=== PATIENT | male | born 1955 | race Caucasian/White ===

== ENCOUNTER 2018-07-28 18:42 | Inpatient (IN) | payer OTHER ==
[~2018-07-28] VITALS: Ht 172.7 cm; Wt 82.2 kg
[2018-07-28 20:05] VITALS: BP 136/81
[2018-07-28 23:04] LABS: BILIRUBIN,URINE NEGATIVE (NEG); CLARITY,URINE CLEAR; COLOR,URINE YELLOW; NITRITE,URINE NEGATIVE (NEG); PH,URINE 7.5; PROTEIN,URINE NEGATIVE (NEG-TRACE)
[2018-07-28 23:15] LABS: BACTERIA,URINE 0 /HPF (0-FEW); HYALINE CASTS, URINE FEW /HPF; RBC,URINE OCC /HPF (0-2); SQUAMOUS EPITHELIAL CELL,UR OCC /LPF; WBC,URINE OCC /HPF (0-4)
[2018-07-28 23:47] VITALS: BP 106/69
[2018-07-29] MEDS ORDERED: LISI2.5T PO (01:26)
[2018-07-29] MEDS ORDERED: METO25TA4 PO (01:26)
[2018-07-29] MEDS ORDERED: WARF4TAB68 PO (01:26)
[2018-07-29] MEDS ORDERED: TRIA1TAB3 PO (01:26)
[2018-07-29 03:06] VITALS: BP 95/63
--- NOTE | 2018-07-29 07:07 | EKG ---
[facility] [address] [place] [address] Test Date: 2018-07-29 Test Time: 07:02:02 Pat Name: JUAN PAGAN Department: Room: 207 Gender: M Merchandising Specialist: : [id number] Requested By: GRACIE KLEIN Order Number: [id number] Reading MD: Kayden Valdovinos MD Measurements Intervals [place] Rate: 73 P: 0 PA: 180 QRS: 67 QRSD: 80 T: 14 QT: 366 QTc: 407 Interpretive Statements SINUS RHYTHM Electronically Signed On 08-02-2018 11:11:31 [address] REPAIRER by Kayden Valdovinos MD
[2018-07-29 07:15] VITALS: BP 126/79
[2018-07-29] MEDS ORDERED: LISINOPRIL 5 MG TABLET. PO SCH (09:00)
[2018-07-29] MEDS ORDERED: METOPROLOL SUCC 24HR ER 25 MG TAB.ER.24H. PO SCH (09:00)
[2018-07-29] MEDS ORDERED: TRIAMTERENE/HCTZ 37.5/25MG TABLET. PO SCH (09:00)
--- NOTE | 2018-07-29 09:25 | CARD ---
MR#: [id number] Date of Study: 07/29/2018 Ordering Physician: MICH SANDY, Referring Physician: GRACIE KLEIN, Tech: Britni Montes PA APPROVED REPORT EXAM: Two-dimensional and M-mode echocardiogram with Doppler and color Doppler. Other Information Quality : GoodHR: 68bpm Rhythm : NSRTechnically limited study due to body habitus. INDICATION Chest Pain Surgery/Intervention Status/Post Aortic Valve Replacement: Mechanical 2D DIMENSIONS RVDd2.9 (2.9-3.5cm)IVSd1.2 (0.7-1.1cm) Aortic Root(2D)2.6 (2.0-3.7cm)LVDd4.0 (3.9-5.9cm) LVOT Diameter1.9 (1.8-2.4cm)PWd1.2 (0.7-1.1cm) LVDs2.6 (2.5-4.0cm)FS (%) 36.2 % SV46.7 mlLVEF(%)66.4 (>50%) Aortic Valve AoV Peak Sudheer.225.7cm/sAoV VTI43.5cm AO Peak GR.20.4mmHgLVOT Peak Sudheer.91.9cm/s AO Mean GR.10mmHgAVA (VMAX)1.11cm2 THU (VTI)1.20cm2 Mitral Valve MV E Ccuhzvjd45.3cm/sMV E Peak Gr.2mmHg MV DECEL [id number] A Yqcgbyin67.7cm/s MV E Mean Gr.1mmHgE/A Ratio1.1 MV A [id number] Pulmonary Valve PV Peak Kvmajbdc051.1cm/s Tricuspid Valve TR P. Jfcknnnd023sv/sRAP MKJGWYSV9etIr TR Peak Gr.88kxZqGAQK40rlSk Pulmonary Vein S1 Htjljwvt47.5cm/sD2 Enhukchs19.9cm/s PVa ktxiyryn13ckks LEFT VENTRICLE The left ventricle is normal size. There is mild concentric left ventricular hypertrophy. The left ve ntricular systolic function is normal and the ejection fraction is within normal range. The Ejection Fraction is 60-65%. There is normal LV segmental wall motion. Transmitral Doppler flow pattern is Gra de I-abnormal relaxation pattern. RIGHT VENTRICLE The right ventricle is normal size. There is normal right ventricular wall thickness. The right ventr icular systolic function is normal. ATRIA The left atrium size is normal. The right atrium size is normal. The interatrial septum is intact wit h no evidence for an atrial septal defect or patent foramen ovale as noted on 2-D or Doppler imaging. AORTIC VALVE Doppler and Color Flow revealed no significant aortic regurgitation. There is no significant aortic v alvular stenosis. The prosthetic aortic valve appears well seated. Suspect tilting bileaflet vacuum cleaner mechanic al valve. MITRAL VALVE The mitral valve is normal in structure and function. There is no evidence of mitral valve prolapse. There is no mitral valve stenosis. Doppler and Color Flow revealed trace mitral regurgitation. TRICUSPID VALVE The tricuspid valve is normal in structure and function. Doppler and Color Flow revealed trace tricus pid regurgitation. The PA pressure was estimated at 24 mmHg. There is no tricuspid valve prolapse or vegetation. There is no tricuspid valve stenosis. PULMONIC VALVE The pulmonary valve is normal in structure and function. Doppler and Color Flow revealed trace pulmon ic valvular regurgitation. There is no pulmonic valvular stenosis. GREAT VESSELS The aortic root is normal in size. The ascending aorta is normal in size. IVC is not well visualized. PERICARDIAL EFFUSION There is no evidence of significant pericardial effusion. Critical Notification Critical Value: No <Conclusion> The left ventricular systolic function is normal and the ejection fraction is within normal range. Th e Ejection Fraction is 60-65%. There is normal LV segmental wall motion. The prosthetic aortic valve appears well seated. Suspect tilting bileaflet mechanical valve. There is no significant aortic valvular stenosis. Signed by : Kayden Valdovinos, Electronically Approved : 07/29/2018 09:25:12
[2018-07-29 09:37] LABS: BASO # 0.1 x10^3/uL (0.0-0.2); BASO % 1 % (0-3); EOS % 1 % (0-3); HEMATOCRIT 44.8 % (39.0-53.0); HEMOGLOBIN 15.4 g/dL (13.0-17.5); LYMPH # 1.6 x10^3/uL (1.0-4.8); LYMPH % 25 % (24-48); MEAN CORPUSCULAR HEMOGLOBIN 32 pg (25-35); MEAN CORPUSCULAR HGB CONC 34 g/dL (31-37); MEAN CORPUSCULAR VOLUME 94 fL (79-100); MONO # 0.6 x10^3/uL (0.0-1.1); MONO % 9 % (0-9); NEUT # 4.3 x10^3uL (1.8-7.7); NEUT % 65 % (31-73); PLATELET COUNT 227 x10^3/uL (140-400); RED BLOOD COUNT 4.78 x10^6/uL (4.30-5.70); WHITE BLOOD COUNT 6.6 x10^3/uL (4.0-11.0)
[2018-07-29] MEDS ORDERED: ONDANSETRON PF 4 MG/2 ML VIAL. IV PRN (09:45)
[2018-07-29] MEDS ORDERED: ACETAMINOPHEN 325 MG TABLET. PO PRN (09:45)
[2018-07-29] MEDS ORDERED: traMADol 50 MG TABLET PO PRN (09:45)
[2018-07-29] MEDS ORDERED: MORPHINE SULFATE 2 MG/ML VIAL. IV PRN (09:45)
[2018-07-29] MEDS ORDERED: DOCUSATE SODIUM 100 MG CAPSULE. PO PRN (09:45)
--- NOTE | 2018-07-29 09:45 | PDOC2 ---
CARDIAC CONSULT DATE OF CONSULT Date of Consult DATE: 07/29/18 TIME: 09:00 REASON FOR CONSULT Reason for Consult: Chest pain heart history REFERRING PHYSICIAN Referring Physician: Fullbright SOURCE Source: Chart review, Patient HISTORY OF PRESENT ILLNESS HISTORY OF PRESENT ILLNESS This is a pleasant 62 yo male admitted for complains of abd pain and chest pain. He was initially at [place] and was transferred to [facility] for further treatment and evaluation. He is very active walking about 35 minutes daily without difficulty and also doing weights at times without difficulty. 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 He worked the other night and woke up at 2PM and was having abdominal cramping/pain that eventually went to his lower sternal border describing it as tightness but nonradiating after that. There was no associated heart burn, indigestion, or nausea. No associated SOA and more importantly denies any palpitations nor DALY. He just saw his [facility] pantograph transferrer Dr. Troy 2 weeks ago and was told that he was doing good. His last stress test was 4 yrs ago approximately. He has had CABGx1 and mechanical AVR due to bicuspid valve and is on care home warfarin therapy. He has been off ASA and does not take statin but takes BP med. He does have hx of GERD in the past but has not had any symptoms. Denies any past bleeding issues, VTE, PUD and no recent falls or injury. No recent fever or chills, antibiotic treatments nor diarrhea. PAST MEDICAL HISTORY Cardiovascular: HTN, Hyperlipidemia, Other (thoracic aortic repair unknown region. ) Pulmonary: No pertinent hx CENTRAL NERVOUS SYSTEM: Other (No pertinent history) GI: GERD Heme/Onc: No pertinent hx Hepatobiliary: No pertinent hx Psych: No pertinent hx Musculoskeletal: Osteoarthritis Rheumatologic: No pertinent hx Infectious disease: No pertinent hx ENT: No pertinent hx Renal/: No pertinent hx Endocrine: No pertinent hx Dermatology: No pertinent hx PAST SURGICAL HISTORY Past Surgical History: CABG, Other (right hand surgical repair) FAMILY HISTORY Family History: Coronary Artery Disease (mother) SOCIAL HISTORY Smoke: Quit (very remotely) ALCOHOL: occassional Drugs: None Lives: with Family CURRENT MEDICATIONS CURRENT MEDICATIONS Current Medications Medications (Trade) Dose Ordered Sig/Janessa Route PRN Reason Start Time Stop Time Status Last Admin Dose Admin Warfarin Sodium (Coumadin Per Physician) 1 each PRN DAILY PRN MC SEE COMMENTS 07/29/18 01:00 07/29/18 02:19 ALLERGIES ALLERGIES: Coded Allergies: No Known Allergies (Verified Allergy, Unknown, 07/29/18) ROS Review of System 14 point ROS evaluated with pertinent positives noted per HPI PHYSICAL EXAM General: Alert, Oriented X3, Cooperative, No acute distress HEENT: Atraumatic, Mucous membr. moist/pink Lungs: Clear to auscultation, Normal air movement Heart: Regular rate (SR no significant ectopies), Other (3/6 systolic murmur to KEVIN and LLS border) Abdomen: Soft, No tenderness, Other (no pulsatile mass) Extremities: No cyanosis, No edema Skin: No breakdown, No significant lesion Neuro: Normal speech, Sensation intact Psych/Mental Status: Mental status NL, Mood NL MUSCULOSKELETAL: Osteoarthritic changes both hands VITALS VITALS Vital Signs Date Time Temp Pulse Resp B/P (MAP) Pulse Ox O2 Delivery O2 Flow Rate FiO2 07/29/18 07:15 97.3 78 18 126/79 (95) 98 Room Air 97.3 LABS Lab: Laboratory Tests Test 07/28/18 21:30 07/28/18 21:55 Urine Collection Type Unknown Urine Color Yellow Urine Clarity Clear Urine pH 7.5 Urine Specific [place] 1.020 Urine Protein Negative mg/dL (NEG-TRACE) Urine Glucose (UA) Negative mg/dL (NEG) Urine Ketones (Stick) Negative mg/dL (NEG) Urine Blood Negative (NEG) Urine Nitrite Negative (NEG) Urine Bilirubin Negative (NEG) Urine Urobilinogen Dipstick 1.0 mg/dL (0.2 mg/dL) Urine Leukocyte Esterase Negative (NEG) Urine RBC Occ /HPF (0-2) Urine WBC Occ /HPF (0-4) Urine Squamous Epithelial Cells Occ /LPF Urine Bacteria 0 /HPF (0-FEW) Urine Hyaline Casts Few /HPF Urine Mucus Slight /LPF Troponin I Quantitative < 0.017 ng/mL (0.000-0.055) ASSESSMENT/PLAN ASSESSMENT/PLAN 1. Atypical CP: possible GI, doubt ACS. 2. Abdominal pain: described it as cramps. no pulsatile mass. 3. Hx of CAD/bicuspid valve/thoracic aortic aneurysm: S/P CABG x1 with mechanical [facility]u AVR and aneurysm repair 4. HTN: Controlled 5. HLP: no statin coverage at home. 6. Chronic anticoagulation with coumadin: Last INR 2.0 Recommendations 1. Doubt ACS. Trop series nml and EKG SR without acute changes by comparison in 2012 EKG. EF and WM nml and AVR is stable. With hx of thoracic aneurysm and abdominal discomfort without any recent imaging CTA to chest/abd is recommended pending Cr level 2. Start on ECASA 81 mg for primary and secondary prevention. 3. Lipids and INR. INR goal 2-3. Lovenox x1. Coumadin dose today per pharmacy. 4. If imaging does not show any significant changes and no further CP then may DC per cardiac standpoint. 5. If CP recurs then may consider for outpt stress test per his outpt pantograph transferrer, MICH SANDY APRN Jul 29, 2018 09:45
[2018-07-29 09:56] LABS: PROTHROMBIN TIME PATIENT 19.5 SEC (11.7-14.0)
[2018-07-29 10:05] LABS: CALCIUM 9.9 mg/dL (8.5-10.1); CHOLESTEROL/HDL RATIO 3.7; CREATININE 1.3 mg/dL (0.7-1.3); GFR 55.8; POTASSIUM 4.3 mmol/L (3.5-5.1)
[2018-07-29] MEDS ORDERED: IV NORMAL SALINE 1000ML BAG 1,000 ML IV ONE (10:15)
[2018-07-29] MEDS ORDERED: IOHEXOL 300 MG/ML 100ML VIAL. IV ONE (10:45)
[2018-07-29] MEDS ORDERED: CONTRAST GIVEN. MC PRN (10:45)
[2018-07-29 10:56] VITALS: BP 115/72
[2018-07-29] MEDS ORDERED: ASPIRIN ENTERIC COATED 81 MG TABLET.DR. PO SCH (11:00)
[2018-07-29 11:38] VITALS: BP 135/81
--- NOTE | 2018-07-29 11:49 | RAD ---
CTA of the chest, abdomen, and pelvis 07/29/2018 INDICATION: Chest pain. Abdominal pain. History of thoracic aortic aneurysm, status post repair. COMPARISON STUDY: None available TECHNIQUE: Multidetector CT imaging of the chest, abdomen, and pelvis was performed before and after the administration of IV contrast. 3-D reconstructions of thoracic vasculature were created on a workstation and reviewed. FINDINGS: Postoperative changes are noted at the level of the aortic valve. Motion artifact limits evaluation of the proximal most ascending thoracic aorta extending to the level of the right brachiocephalic artery. No convincing evidence of acute dissection is seen. No evidence of rupture is identified. Heart size is normal. Coronary calcification is extensive. No mediastinal adenopathy is seen. No significant pericardial or mediastinal fluid is identified. The origin of the great vessels of the aortic arch are intact. The descending thoracic aorta is normal in course and caliber. The abdominal aorta and aortoiliac vessels are normal in course and caliber. No evidence of aneurysm or dissection involving these vessels is identified. Extreme tortuosity of the celiac axis is noted. This remains patent however SMA is patent. The left renal artery is somewhat hypoplastic in appearance possible mild proximal stenosis. Left kidney is hypoplastic in appearance the KAMERON is patent. Nonvascular findings: Heart size is normal. No pericardial effusion is identified. Large hiatal hernia is noted. No pathologically enlarged mediastinal adenopathy is seen. No pneumothorax or pleural effusion is identified. No focal consolidative infiltrate is seen. There is a subpleural possibly noncalcified nodule within the right upper lobe measuring 3 mm in diameter (axial image 42) calcified right hilar lymphadenopathy is seen suggesting prior granulomatous disease. Calcified granuloma noted in the right lower lobe. Liver and gallbladder are unremarkable. Spleen demonstrates changes of granulomatous disease. The adrenal glands are unremarkable. The pancreas is grossly unremarkable. The left kidney is atrophic. A small cyst is seen in the superior left kidney. There is a prior renal infarct on the left are noted. There is a 9.5 cm cyst in the inferior pulmonary kidney. The right kidney is otherwise unremarkable. There is no evidence of bowel obstruction. There is no free fluid or free air seen in the abdomen or pelvis. Appendix is unremarkable. No evidence of acute osseous abnormality is identified. IMPRESSION: 1. Evaluation of ascending thoracic aorta is somewhat limited as described without gross evidence of acute abnormality. Postsurgical changes noted. No evidence of aortic arch, descending thoracic aortic, or abdominal aortic aneurysm or dissection. 2. 3 mm noncalcified nodule, right upper lobe. CT surveillance recommended as described below. If patient is considered low risk no follow-up is required. If patient is considered high risk CT chest in one year recommended. 3. Large hiatal hernia 4. Atrophic left kidney with areas of chronic appearing renal infarction. 5. 9.5 cm cyst, inferior right kidney. CT DOSING PQRS STATEMENT: One or more of the following individualized dose reduction techniques were utilized for this examination: 1. Automated exposure control 2. Adjustment of the mA and/or kV according to patient size 3. Use of iterative reconstruction technique Electronically signed by: Hunter Umaña MD (07/29/2018 11:45 AM) [id number]
--- NOTE | 2018-07-29 14:00 | PDOC1 ---
History and Physical Date of Admission Date of Admission 07/29/18 Identification/Chief Complaint Chief Complaint abd pain, chest pain Source Source: Chart review, Patient History of Present Illness History of Present Illness 62yo M, with h/o AVR on warfarin, CABGX1, THOracic aneurysm repair was transferred from [facility] for chest pain. Pt started to have upper abd pain yesterday afternoon, constant , lasting for 2.5hs, sharp, radiating to lower chest, no tenderness, no sob, nausea/v or diaphoresis, 04/30. Pt went to [facility] at 4pm and the pain was almost gone. no pain overnight here. EKG stable. trop neg. denies GERD, but said one time 20ys ago. Past Medical History Cardiovascular: HTN, Hyperlipidemia, Other (thoracic aortic repair unknown region. ) Pulmonary: No pertinent hx CENTRAL NERVOUS SYSTEM: Other (No pertinent history) GI: GERD Heme/Onc: No pertinent hx Hepatobiliary: No pertinent hx Psych: No pertinent hx Rheumatologic: No pertinent hx Infectious disease: No pertinent hx ENT: No pertinent hx Renal/: No pertinent hx Endocrine: No pertinent hx Dermatology: No pertinent hx Past Surgical History Past Surgical History AVR THOARACIC aneurysm repair Past Surgical History: CABG, Other (right hand surgical repair) Family History Family History: Coronary Artery Disease (mother) Social History Smoke: Quit (very remotely) ALCOHOL: occassional Drugs: None Current Medications Current Medications Current Medications Medications (Trade) Dose Ordered Sig/Janessa Start Time Stop Time Status Last Admin Dose Admin Acetaminophen (Tylenol) 650 mg PRN Q6HRS PRN 07/29/18 09:45 Aspirin (Ecotrin) 81 mg [id number] 07/29/18 11:00 07/29/18 11:40 81 MG Atorvastatin Calcium (Lipitor) 20 mg QHS 07/29/18 21:00 Docusate Sodium (Colace) 100 mg PRN DAILY PRN 07/29/18 09:45 Enoxaparin Sodium (Lovenox 80mg Syringe) 80 mg Q12HR 07/29/18 12:00 07/29/18 12:32 DC 07/29/18 11:44 80 MG Enoxaparin Sodium (Lovenox Per Pharmacy Treatment Dosing) 1 each PRN DAILY PRN 07/29/18 11:30 Cancel Info (CONTRAST GIVEN -- Rx MONITORING) 1 each PRN DAILY PRN 07/29/18 10:45 07/31/18 10:44 Iohexol (Omnipaque 300 Mg/ml) 75 ml 1X ONCE 07/29/18 10:45 07/29/18 10:46 DC 07/29/18 10:48 75 ML Lisinopril (Prinivil) 2.5 mg DAILY 07/29/18 09:00 07/29/18 11:40 2.5 MG Metoprolol Succinate (Toprol Xl) 25 mg DAILY 07/29/18 09:00 07/29/18 11:41 25 MG Morphine Sulfate (Morphine Sulfate) 2 mg PRN Q2HR PRN 07/29/18 09:45 Ondansetron HCl (Zofran) 4 mg PRN Q6HRS PRN 07/29/18 09:45 Sodium Chloride 1,000 ml @ 100 mls/hr 1X ONCE 07/29/18 10:15 07/29/18 20:14 07/29/18 11:40 100 MLS/HR Tramadol HCl (Ultram) 50 mg PRN Q6HRS PRN 07/29/18 09:45 Triamterene/HCTZ (Maxzide 37.5/ 25mg) 1 tab DAILY 07/29/18 09:00 07/29/18 11:40 1 TAB Warfarin Sodium (Coumadin Per Pharmacy) 1 each PRN DAILY PRN 07/29/18 11:30 Warfarin Sodium (Coumadin Per Physician) 1 each PRN DAILY PRN 07/29/18 01:00 07/29/18 11:45 DC 07/29/18 02:19 1 EACH Warfarin Sodium (Coumadin) 4 mg DAILY16 07/29/18 16:00 Allergies Allergies Allergies Coded Allergies Type Severity Reaction Last Updated Verified No Known Allergies Allergy Unknown 07/29/18 Yes ROS Review of System CONSTITUTIONAL: No fever or chills EYES: No recent changes SKIN: No rash or itching CARDIOVASCULAR: No chest pain, syncope, palpitations, or edema RESPIRATORY: No SOB or cough GASTROINTESTINAL: No nausea, vomiting or abdominal pain NEUROLOGICAL: No headaches or weakness ENDOCRINE: No cold or heat intolerance GENITOURINARY: No urgency or frequency of urination MUSCULOSKELETAL: No back pain or joint pain LYMPHATICS: No enlarged lymph nodes PSYCHIATRIC: No anxiety or depression Physical Exam Physical Exam GEN.: No apparent distress. Alert and oriented. HEENT: Head is normocephalic, atraumatic NECK: Supple. LUNGS: Clear to auscultation. HEART: RRR, S1, S2 present. Peripheral pulses intact ABDOMEN: Soft, nontender. Positive bowel sounds. EXTREMITIES: Without any cyanosis. NEUROLOGIC: Normal speech, normal tone PSYCHIATRIC: Normal affect, normal mood. SKIN: No ulcerations Vitals Vitals Vital Signs Date Time Temp Pulse Resp B/P (MAP) Pulse Ox O2 Delivery O2 Flow Rate FiO2 07/29/18 11:41 90 135/81 07/29/18 10:56 97.3 18 96 Room Air 97.3 Labs Labs Laboratory Tests Test 07/28/18 21:30 07/28/18 21:55 07/29/18 09:25 Urine Collection Type Unknown Urine Color Yellow Urine Clarity Clear Urine pH 7.5 Urine Specific [place] 1.020 Urine Protein Negative mg/dL (NEG-TRACE) Urine Glucose (UA) Negative mg/dL (NEG) Urine Ketones (Stick) Negative mg/dL (NEG) Urine Blood Negative (NEG) Urine Nitrite Negative (NEG) Urine Bilirubin Negative (NEG) Urine Urobilinogen Dipstick 1.0 mg/dL (0.2 mg/dL) Urine Leukocyte Esterase Negative (NEG) Urine RBC Occ /HPF (0-2) Urine WBC Occ /HPF (0-4) Urine Squamous Epithelial Cells Occ /LPF Urine Bacteria 0 /HPF (0-FEW) Urine Hyaline Casts Few /HPF Urine Mucus Slight /LPF Troponin I Quantitative < 0.017 ng/mL (0.000-0.055) < 0.017 ng/mL (0.000-0.055) White Blood Count 6.6 x10^3/uL (4.0-11.0) Red Blood Count 4.78 x10^6/uL (4.30-5.70) Hemoglobin 15.4 g/dL (13.0-17.5) Hematocrit 44.8 % (39.0-53.0) Mean Corpuscular Volume 94 fL (79-100) Mean Corpuscular Hemoglobin 32 pg (25-35) Mean Corpuscular Hemoglobin Concent 34 g/dL (31-37) Red Cell Distribution Width 15.0 % (11.5-14.5) Platelet Count 227 x10^3/uL (140-400) Neutrophils (%) (Auto) 65 % (31-73) Lymphocytes (%) (Auto) 25 % (24-48) Monocytes (%) (Auto) 9 % (0-9) Eosinophils (%) (Auto) 1 % (0-3) Basophils (%) (Auto) 1 % (0-3) Neutrophils # (Auto) 4.3 x10^3uL (1.8-7.7) Lymphocytes # (Auto) 1.6 x10^3/uL (1.0-4.8) Monocytes # (Auto) 0.6 x10^3/uL (0.0-1.1) Eosinophils # (Auto) 0.0 x10^3/uL (0.0-0.7) Basophils # (Auto) 0.1 x10^3/uL (0.0-0.2) Prothrombin Time 19.5 SEC (11.7-14.0) Prothromb Time International Ratio 1.7 (0.8-1.1) Sodium Level 141 mmol/L (136-145) Potassium Level 4.3 mmol/L (3.5-5.1) Chloride Level 103 mmol/L (98-107) Carbon Dioxide Level 29 mmol/L (21-32) Anion Gap 9 (6-14) Blood Urea Nitrogen 15 mg/dL (8-26) Creatinine 1.3 mg/dL (0.7-1.3) Estimated GFR (Cockcroft-Gault) 55.8 Glucose Level 100 mg/dL (70-99) Calcium Level 9.9 mg/dL (8.5-10.1) Triglycerides Level 117 mg/dL (0-150) Cholesterol Level 228 mg/dL (0-200) LDL Cholesterol, Calculated 144 mg/dL (0-100) VLDL Cholesterol, Calculated 23 mg/dL (0-40) Non-HDL Cholesterol Calculated 167 mg/dL (0-129) HDL Cholesterol 61 mg/dL (40-60) Cholesterol/HDL Ratio 3.7 Laboratory Tests Test 07/28/18 21:30 07/28/18 21:55 07/29/18 09:25 Urine Collection Type Unknown Urine Color Yellow Urine Clarity Clear Urine pH 7.5 Urine Specific [place] 1.020 Urine Protein Negative mg/dL (NEG-TRACE) Urine Glucose (UA) Negative mg/dL (NEG) Urine Ketones (Stick) Negative mg/dL (NEG) Urine Blood Negative (NEG) Urine Nitrite Negative (NEG) Urine Bilirubin Negative (NEG) Urine Urobilinogen Dipstick 1.0 mg/dL (0.2 mg/dL) Urine Leukocyte Esterase Negative (NEG) Urine RBC Occ /HPF (0-2) Urine WBC Occ /HPF (0-4) Urine Squamous Epithelial Cells Occ /LPF Urine Bacteria 0 /HPF (0-FEW) Urine Hyaline Casts Few /HPF Urine Mucus Slight /LPF Troponin I Quantitative < 0.017 ng/mL (0.000-0.055) < 0.017 ng/mL (0.000-0.055) White Blood Count 6.6 x10^3/uL (4.0-11.0) Red Blood Count 4.78 x10^6/uL (4.30-5.70) Hemoglobin 15.4 g/dL (13.0-17.5) Hematocrit 44.8 % (39.0-53.0) Mean Corpuscular Volume 94 fL (79-100) Mean Corpuscular Hemoglobin 32 pg (25-35) Mean Corpuscular Hemoglobin Concent 34 g/dL (31-37) Red Cell Distribution Width 15.0 % (11.5-14.5) Platelet Count 227 x10^3/uL (140-400) Neutrophils (%) (Auto) 65 % (31-73) Lymphocytes (%) (Auto) 25 % (24-48) Monocytes (%) (Auto) 9 % (0-9) Eosinophils (%) (Auto) 1 % (0-3) Basophils (%) (Auto) 1 % (0-3) Neutrophils # (Auto) 4.3 x10^3uL (1.8-7.7) Lymphocytes # (Auto) 1.6 x10^3/uL (1.0-4.8) Monocytes # (Auto) 0.6 x10^3/uL (0.0-1.1) Eosinophils # (Auto) 0.0 x10^3/uL (0.0-0.7) Basophils # (Auto) 0.1 x10^3/uL (0.0-0.2) Prothrombin Time 19.5 SEC (11.7-14.0) Prothromb Time International Ratio 1.7 (0.8-1.1) Sodium Level 141 mmol/L (136-145) Potassium Level 4.3 mmol/L (3.5-5.1) Chloride Level 103 mmol/L (98-107) Carbon Dioxide Level 29 mmol/L (21-32) Anion Gap 9 (6-14) Blood Urea Nitrogen 15 mg/dL (8-26) Creatinine 1.3 mg/dL (0.7-1.3) Estimated GFR (Cockcroft-Gault) 55.8 Glucose Level 100 mg/dL (70-99) Calcium Level 9.9 mg/dL (8.5-10.1) Triglycerides Level 117 mg/dL (0-150) Cholesterol Level 228 mg/dL (0-200) LDL Cholesterol, Calculated 144 mg/dL (0-100) VLDL Cholesterol, Calculated 23 mg/dL (0-40) Non-HDL Cholesterol Calculated 167 mg/dL (0-129) HDL Cholesterol 61 mg/dL (40-60) Cholesterol/HDL Ratio 3.7 VTE Prophylaxis Ordered VTE Prophylaxis Devices: Yes VTE Pharmacological Prophylaxi: No Assessment/Plan Assessment/Plan Abdominal pain, 2/2 GERD, hiatal hernia likely shown on CT chest pain, 2/2 abd pain Hx of CAD/bicuspid aortic valve replacement /thoracic aortic aneurysm: S/P CABG x1 with mechanical [facility] AVR and aneurysm repair HTN: Controlled HLP: no statin coverage at home. Chronic anticoagulation with coumadin GERD plan: fu with card, echo ok. EF 55% [place] CTA ruled out aneurysm, or disection but showed a large hiatal hernia. add protonix po for now warfarin daily, lovenox x1 , INR daily ADD LIpitor MARTHA URIOSTEGUI MD Jul 29, 2018 14:00
[2018-07-29] MEDS ORDERED: Pantoprazole PO (14:59)
[2018-07-29] MEDS ORDERED: ATOR20TA58 PO (14:59)
--- NOTE | 2018-07-29 15:00 | PDOC3 ---
Discharge Summary [facility] Date of Admission: Jul 28, 2018 Discharge Date: Jul 29, 2018 Admitting Diagnosis Abdominal pain, 2/2 GERD, hiatal hernia likely shown on CT chest pain, 2/2 abd pain Hx of CAD/bicuspid aortic valve replacement /thoracic aortic aneurysm: S/P CABG x1 with mechanical [facility] AVR and aneurysm repair HTN: Controlled HLP: no statin coverage at home. Chronic anticoagulation with coumadin GERD CONSULTS card Brief Hospital Course 62yo M, with h/o AVR on warfarin, CABGX1, THOracic aneurysm repair was transferred from [facility] for chest pain. Pt started to have upper abd pain yesterday afternoon, constant , lasting for 2.5hs, sharp, radiating to lower chest, no tenderness, no sob, nausea/v or diaphoresis, 04/30. Pt went to [facility] at 4pm and the pain was almost gone. no pain overnight here. EKG stable. trop neg. denies GERD, but said one time 20ys ago. Pt has no chest pain now. echo ok. [place] CTA RULED out aneurysm or dissection, but showed large hiatal hernia. the abd pain is 2/2 the hiatal hernia likely. add protonix dc with protonix, lipitor. dc time 35min. Disposition home CONDITION AT DISCHARGE: Improved Scheduled Atorvastatin Calcium (Atorvastatin Calcium), 20 MG PO QHS Lisinopril (Lisinopril), 2.5 MG PO DAILY, (Reported) Metoprolol Tartrate (Metoprolol Tartrate), 25 MG PO DAILY, (Reported) Triamterene/Hydrochlorothiazid (Triamterene-Hctz 37.5-25 Mg Tb), 1 TAB PO DAILY, (Reported) Warfarin Sodium (Coumadin), 4 MG PO DAILY, (Reported) [Pantoprazole], 40 MG PO DAILYAC MARTHA URIOSTEGUI MD Jul 29, 2018 15:00
[2018-07-29 15:13] VITALS: BP 114/73
[2018-07-29] MEDS ORDERED: WARFARIN 4 MG TABLET. PO SCH (16:00)
[2018-07-29] MEDS ORDERED: ATORVASTATIN CALCIUM 20 MG TABLET PO SCH (21:00)
[2018-07-30] MEDS ORDERED: PANTOPRAZOLE 40 MG TABLET.DR. PO SCH (07:30)
== END 2018-07-29 17:00 | disposition home or self-care (01) | DRG 392 ==
LOC: 2 NORTH 19:49
PROVIDERS: ADMIT Family Medicine; ATTEND Family Medicine
DX: K44.9 Diaphragmatic hernia without obstruction or gangrene (principal); I10 Essential (primary) hypertension; E78.5 Hyperlipidemia, unspecified; I25.10 Atherosclerotic heart disease of native coronary artery without angina pectoris; K21.9 Gastro-esophageal reflux disease without esophagitis; Z79.899 Other long term (current) drug therapy; Z79.01 Long term (current) use of anticoagulants; Z95.1 Presence of aortocoronary bypass graft; Z95.2 Presence of prosthetic heart valve; Z82.49 Family history of ischemic heart disease and other diseases of the circulatory system
CPT/HCPCS: 36415; 71275; 74174; 80048; 80061; 81001; 84484; 85025; 85610; 93005; 93306; J1650; J7030; Q9967